=== PATIENT | male | born 1960 | race Caucasian/White ===

== ENCOUNTER 2021-07-24 12:52 | Inpatient (IN) | payer OTHER ==
[~2021-07-24] VITALS: Ht 160 cm; Wt 55.7 kg
[2021-07-24 13:43] LABS: BASOPHIL 0.4 % (0-2); EOSINOPHIL 0.6 % (0-5); HCT 59.2 % (42.0-52.0); HGB 19.6 g/dl (13.2-18.0); LYMPHOCYTE 20.2 % (15-48); MCH 31.1 pg (25.0-31.0); MCHC 33.1 g/dL (32.0-36.0); MONOCYTE 8.6 % (0-12); MPV 11.7 fL (6.0-9.5); NEUTROPHIL 69.6 % (41-80); NRBC 0; PLT 154 K/uL (150-400); WBC 10.3 K/uL (4.0-10.5)
[2021-07-24 13:58] LABS: BILIRUBIN 2+ mg/dL (NEGATIVE); BLOOD NEGATIVE Ery/uL (NEGATIVE); CLARITY CLEAR (CLEAR); COLOR YELLOW (YELLOW); GLUCOSE (U) TRACE mg/dL (NORMAL); LEUKOCYTES NEGATIVE Leu/uL (NEGATIVE); NITRITE NEGATIVE (NEGATIVE); PROTEIN 2+ mg/dL (NEGATIVE); SPECIFIC GRAVITY 1.025 (1.001-1.030); pH 6.5 (5.0-9.0)
[2021-07-24 14:04] LABS: AMPHETAMINES NEGATIVE (NEGATIVE); BARBITURATES NEGATIVE (NEGATIVE); ECSTASY (MDMA) NEGATIVE (NEGATIVE); MARIJUANA (THC) POSITIVE (NEGATIVE); METHADONE NEGATIVE (NEGATIVE); OPIATES NEGATIVE (NEGATIVE); OXYCODONE NEGATIVE (NEGATIVE)
[2021-07-24 14:11] LABS: BACTERIA 1+; MUCOUS MODERATE; URINARY WBC RARE
[2021-07-24 14:47] LABS: ALBUMIN 3.1 g/dL (3.4-5.0); BILIRUBIN - TOTAL 0.4 mg/dL (0.2-1.0); BUN/CREAT RATIO (CALC) 17.9 RATIO; CREATININE 0.95 mg/dL (0.67-1.17); GLOBULIN (CALCULATION) 3.8 g/dL; POTASSIUM 4.5 mmol/L (3.5-5.1); TOTAL PROTEIN 6.9 g/dL (6.4-8.2)
[2021-07-25 05:54] LABS: BASOPHIL 0.2 % (0-2); EOSINOPHIL 0 % (0-5); HGB 18.1 g/dl (13.2-18.0); MCH 31.4 pg (25.0-31.0); MCHC 34.2 g/dL (32.0-36.0); MCV 91.9 fL (78.0-100.0); MONOCYTE 10.6 % (0-12); MPV 10.9 fL (6.0-9.5); NRBC 0; PLT 124 K/uL (150-400); RBC 5.77 M/uL (4.70-6.00); RDW 12.9 % (11.5-14.0); WBC 5.2 K/uL (4.0-10.5)
[2021-07-25 09:06] LABS: BUN/CREAT RATIO (CALC) 22.4 RATIO; CREATININE 0.85 mg/dL (0.67-1.17); POTASSIUM 4.4 mmol/L (3.5-5.1)
[2021-07-26 06:00] LABS: BASOPHIL 0.2 % (0-2); EOSINOPHIL 0 % (0-5); HCT 50.6 % (42.0-52.0); LYMPHOCYTE 10.7 % (15-48); MCH 30.7 pg (25.0-31.0); MCHC 33.6 g/dL (32.0-36.0); MCV 91.3 fL (78.0-100.0); MONOCYTE 6.6 % (0-12); MPV 11.6 fL (6.0-9.5); NEUTROPHIL 82.1 % (41-80); NRBC 0; PLT 134 K/uL (150-400); RBC 5.54 M/uL (4.70-6.00); RDW 12.9 % (11.5-14.0)
[2021-07-26 06:06] LABS: WBC 11.6 K/uL (4.0-10.5)
[2021-07-26 06:58] LABS: BUN/CREAT RATIO (CALC) 25.7 RATIO; CREATININE 0.74 mg/dL (0.67-1.17); MAGNESIUM 2.2 mg/dL (1.8-2.4); POTASSIUM 3.9 mmol/L (3.5-5.1)
[2021-07-28 05:30] LABS: BUN/CREAT RATIO (CALC) 23.4 RATIO; CREATININE 0.77 mg/dL (0.67-1.17)
[2021-07-28 05:37] LABS: BASOPHIL 0.4 % (0-2); EOSINOPHIL 0 % (0-5); HCT 49.9 % (42.0-52.0); HGB 16.6 g/dl (13.2-18.0); MCH 31.3 pg (25.0-31.0); MCHC 33.3 g/dL (32.0-36.0); MONOCYTE 15.8 % (0-12); MPV 11.7 fL (6.0-9.5); NEUTROPHIL 65.4 % (41-80); NRBC 0; PLT 165 K/uL (150-400); RBC 5.31 M/uL (4.70-6.00)
[2021-07-28 05:45] LABS: WBC 5.6 K/uL (4.0-10.5)
--- NOTE | 2021-07-28 14:56 | NUR ---
07/28/21 Mr. Krishnamurthy lives at home. His son Darryl Krishnamurthy also lives in the home. Mr. Krishnamurthy was independent in the home prior to admission. He does not have a car or telephone. He uses his [employer] phone, Osito Mcneill, . Mr. Krisnhamurthy does not have a PCP. Per his request, a referral was made to the [facility]. Also, will not accept a referral without a PCP. A referral was made to [facility] for 02 at 2 L.
--- NOTE | 2021-07-28 21:03 | NUR ---
HAND OFF REPORT GIVEN TO ADONIS MOSQUEDA
[2021-07-29 06:19] LABS: BUN/CREAT RATIO (CALC) 27.9 RATIO; CREATININE 0.68 mg/dL (0.67-1.17)
[2021-07-29 08:44] LABS: BASOPHIL 0.8 % (0-2); EOSINOPHIL 0 % (0-5); HCT 52.8 % (42.0-52.0); HGB 17.7 g/dl (13.2-18.0); MCH 31.1 pg (25.0-31.0); MCHC 33.5 g/dL (32.0-36.0); MCV 92.6 fL (78.0-100.0); MONOCYTE 14.3 % (0-12); MPV 11.6 fL (6.0-9.5); NEUTROPHIL 66.6 % (41-80); NRBC 0; PLT 199 K/uL (150-400); RDW 12.9 % (11.5-14.0); WBC 7.3 K/uL (4.0-10.5)
[2021-07-29] MEDS ORDERED: ATROVENT HFA12.9 GM INH (14:22)
[2021-07-29] MEDS ORDERED: COZAAR50 MG PO (14:22)
[2021-07-29] MEDS ORDERED: MEDROL 4MG DOSEP4 MG PO (14:22)
[2021-07-29] MEDS ORDERED: ALDACTONE25 MG PO (14:22)
[2021-07-29] MEDS ORDERED: ASPIRIN EC81 MG PO (14:22)
[2021-07-29] MEDS ORDERED: TOPROL XL 25MG25 MG PO (14:22)
[2021-07-29] MEDS ORDERED: VENTOLIN HFA IN18 GM INH (14:22)
[2021-07-29] MEDS ORDERED: PANTOPRAZOLE SO40 MG PO (14:22)
--- NOTE | 2021-07-29 15:53 | NUR ---
07/29 The contact information and address on the face sheet were incorrect. Mr. Krishnamurthy was unable to provide the correct address or contact information. The [facility] was requested to go to the home and ask the son to call us. Daniel Krishnamurthy telephoned. His telephone # is [phone]. The address is: [address] [place] [address]. Neighbor, Osito Mcneill's correct phone # is: [phone]. Daniel was requested to transport patient home after the concentrator is deliverd. [facility] was informed of the correct address and son's telephone #. Report given to YOSI Bunch RN.
== END 2021-07-29 18:36 | disposition home or self-care (01) | DRG 177 ==
LOC: FER 12:52 → FTCU 15:26
PROVIDERS: Emergency Medicine; Internal Medicine; Internal Medicine Cardiovascular Disease; Nurse Practitioner Family; ADMIT Internal Medicine
PROC: XW033E5 Introduction of Remdesivir Anti-infective into Peripheral Vein, Percutaneous Approach, New Technology Group 5 (ICD-10-PCS; principal; 2021-07-26)
DX: U07.1 COVID-19 (principal); J12.82 Pneumonia due to coronavirus disease 2019; I21.A1 Myocardial infarction type 2; J96.01 Acute respiratory failure with hypoxia; J44.1 Chronic obstructive pulmonary disease with (acute) exacerbation; I47.1 Supraventricular tachycardia; J44.0 Chronic obstructive pulmonary disease with (acute) lower respiratory infection; I42.9 Cardiomyopathy, unspecified; I50.20 Unspecified systolic (congestive) heart failure; R00.1 Bradycardia, unspecified; I27.20 Pulmonary hypertension, unspecified; Z86.11 Personal history of tuberculosis; Z98.890 Other specified postprocedural states; Z88.5 Allergy status to narcotic agent; Z87.891 Personal history of nicotine dependence; Z82.49 Family history of ischemic heart disease and other diseases of the circulatory system
CPT/HCPCS: 36415; 36600; 71045; 80048; 80053; 80305; 81001; 82553; 82728; 82803; 83735; 83880; 84443; 84484; 85025; 93005; 94640; 94664; C9399; J0360; J0456; J0696; J1650; J2930; J7050; J7512; U0002

== ENCOUNTER 2022-03-11 15:05 | Day surgery (SDCO) | payer OTHER ==
[~2022-03-11] VITALS: Ht 162.6 cm; Wt 60.1 kg
[~2022-03-11 15:05] MED LIST: ALDACTONE25 MG PO; ASPIRIN EC81 MG PO; ATROVENT HFA12.9 GM INH; COZAAR50 MG PO; MEDROL 4MG DOSEP4 MG PO; PANTOPRAZOLE SO40 MG PO; TOPROL XL 25MG25 MG PO; VENTOLIN HFA IN18 GM INH
[2022-03-11 16:19] LABS: BASOPHIL 0.3 % (0-2); EOSINOPHIL 3.6 % (0-5); HCT 55.4 % (42.0-52.0); HGB 17.5 g/dl (13.2-18.0); LYMPHOCYTE 4.6 % (15-48); MCHC 31.6 g/dL (32.0-36.0); MCV 98.2 fL (78.0-100.0); MONOCYTE 5.6 % (0-12); MPV 10.5 fL (6.0-9.5); NEUTROPHIL 85.4 % (41-80); NRBC 0; PLT 243 K/uL (150-400); RBC 5.64 M/uL (4.70-6.00); RDW 12.9 % (11.5-14.0)
[2022-03-11 16:20] LABS: WBC 19.2 K/uL (4.0-10.5)
[2022-03-11 16:24] LABS: INR 0.96 (0.9-1.2); PROTHROMBIN TIME 12.5 SECONDS (11.9-13.9); PTT 26.5 SECONDS (24.9-34.6)
[2022-03-11 16:30] LABS: ALBUMIN 3.9 g/dL (3.4-5.0); BILIRUBIN - TOTAL 0.6 mg/dL (0.2-1.0); BUN/CREAT RATIO (CALC) 13.9 RATIO; CREATININE 0.79 mg/dL (0.67-1.17); GLOBULIN (CALCULATION) 4.6 g/dL; MAGNESIUM 2.1 mg/dL (1.8-2.4); POTASSIUM 4.6 mmol/L (3.5-5.1); TOTAL PROTEIN 8.5 g/dL (6.4-8.2)
[2022-03-11 16:54] LABS: LACTIC ACID 0.9 mmol/L (0.4-1.9)
[2022-03-11 17:44] LABS: CORONAVIRUS 2019 SARS-COV-2 NEGATIVE (NEGATIVE); INFLUENZA A NAA NEGATIVE (NEGATIVE)
[2022-03-11] MEDS ORDERED: TOPROL XL 25MG25 MG PO (21:05)
[2022-03-11] MEDS ORDERED: PROTONIX 40MG T40 MG PO (21:06)
[2022-03-11] MEDS ORDERED: COZAAR50 MG PO (21:07)
[2022-03-11] MEDS ORDERED: PROAIR HFA8.5 GM PO ×2 (21:09→21:10)
[2022-03-11] MEDS ORDERED: ATROVENT HFA12.9 GM PO (21:11)
[2022-03-12 05:53] LABS: BASOPHIL 0.1 % (0-2); EOSINOPHIL 0 % (0-5); HCT 45.7 % (42.0-52.0); HGB 14.4 g/dl (13.2-18.0); LYMPHOCYTE 2.8 % (15-48); MCHC 31.5 g/dL (32.0-36.0); MCV 98.3 fL (78.0-100.0); MONOCYTE 0.6 % (0-12); MPV 10.7 fL (6.0-9.5); NRBC 0; PLT 190 K/uL (150-400); RBC 4.65 M/uL (4.70-6.00); RDW 12.7 % (11.5-14.0); WBC 15.6 K/uL (4.0-10.5)
[2022-03-12 05:54] LABS: NEUTROPHIL 96.1 % (41-80)
[2022-03-12 06:11] LABS: CREATININE 0.6 mg/dL (0.67-1.17); POTASSIUM 5.2 mmol/L (3.5-5.1)
[2022-03-12] MEDS ORDERED: DOXYCYCLINE MO100 MG PO (13:16)
[2022-03-12] MEDS ORDERED: PREDNISONE 10MG10 MG PO (13:16)
[2022-03-12] MEDS ORDERED: DULERA 100 MCG8.8 GM INH (13:16)
--- NOTE | 2022-03-12 15:04 | NUR ---
PATIENT DISCHARGED VIA WHEELCHAIR, ACCOMAPNIED BY NURSE. MONITOR AND IV DCD. DISCHARGE INSTRUCTIONS GIVEN TO PATIEN VERBALIZED UNDERSTANDING. PRESRIPTIONS AT [facility] AND [facility]PLANATION GIVEN OF NEW MEDICATIONS. TO FOLLOW UP WITH PCP ON 03/21 AT 2 PM.
== END 2022-03-12 14:54 | disposition home or self-care (01) ==
LOC: FER 15:05 → FTCU 19:56
PROVIDERS: Internal Medicine; Nurse Practitioner; ADMIT Emergency Medicine
DX: A41.9 Sepsis, unspecified organism (principal); J20.9 Acute bronchitis, unspecified; J43.9 Emphysema, unspecified; J96.22 Acute and chronic respiratory failure with hypercapnia; J96.21 Acute and chronic respiratory failure with hypoxia; I25.10 Atherosclerotic heart disease of native coronary artery without angina pectoris; I25.2 Old myocardial infarction; F17.210 Nicotine dependence, cigarettes, uncomplicated; Z20.822 Contact with and (suspected) exposure to COVID-19; Z86.16 Personal history of COVID-19; Z99.81 Dependence on supplemental oxygen; Z88.5 Allergy status to narcotic agent; Z88.0 Allergy status to penicillin
CPT/HCPCS: 36415; 36600; 71250; 80048; 80053; 82803; 83605; 83735; 83880; 84145; 84484; 85025; 85379; 85610; 85730; 87040; 94010; 94640; 94664; 94667; 94668; 94760; 94762; 97165; G0378; J0456; J0696; J1650; J2543; J2930; J3475; J7030; J7050; U0002